=== PATIENT | male | born 1985 | race Caucasian/White ===

== ENCOUNTER 2021-09-21 21:25 | Emergency (ER) | payer OTHER ==
[~2021-09-21] VITALS: Ht 172.7 cm; Wt 86.4 kg
[~2021-09-21 21:25] MED LIST: IMODIUM 2MG CAPS2 MG PO
[2021-09-21 22:54] VITALS: BP 162/84; PULSE 82; TEMP 98.7
== END 2021-09-21 23:45 | disposition left against medical advice (07) ==
LOC: COL.ER 21:25
DX: R06.00 Dyspnea, unspecified (principal)

== ENCOUNTER 2022-05-11 20:09 | Emergency (ER) | payer OTHER ==
[~2022-05-11] VITALS: Ht 175.3 cm; Wt 84.1 kg
[2022-05-11 22:57] VITALS: TEMP 98
[2022-05-12 00:30] VITALS: BP 141/85; PULSE 84
== END 2022-05-12 00:30 | disposition home or self-care (01) ==
LOC: COL.ER 20:09 → SDCO 22:00 → COL.ER 05-12 00:30
DX: T18.128A Food in esophagus causing other injury, initial encounter (principal); Z28.310 Unvaccinated for COVID-19
CPT/HCPCS: J0330; J1100; J1885; J2060; J2405; J2704; J3010